=== PATIENT | male | born 1990 | race Caucasian/White ===

== ENCOUNTER 2019-01-14 11:09 | Observation (INO) | payer OTHER ==
[2019-01-14] MEDS ORDERED: Albuterol/Ipratropium 3.0-0.5 MG/3 ML Neb Soln NEB ONE (11:12)
--- NOTE | 2019-01-14 11:13 | EDM.PDOC ---
ED HPI GENERAL MEDICAL PROBLEM - General Stated Complaint: COUGHING, CHEST PAIN, SHORTNESS OF BREATH Time Seen by Provider: 01/14/19 11:13 Source of Information: Reports: Patient History Limitations: Reports: No Limitations - History of Present Illness INITIAL COMMENTS - FREE TEXT/NARRATIVE: HISTORY AND PHYSICAL: History of present illness: Patient is a 28-year-old male presents to the emergency room with complaints of chest pain. Patient indicates that his chest pain when lying in bed is across the anterior aspect of his chest; however when he moves it radiates to the left side of his chest. Pain does not radiation to his jaw, back or arms. He indicates that the pain does get worse with standing up or physical activity. He denies having any prior history of cold symptoms but does indicate that he has a minor sore throat today but feels this is related to him not drinking enough. He indicates the chest pain and the cough started yesterday at the same time. Review of systems: As per history of present illness and below otherwise all systems reviewed and negative. Past medical history: As per history of present illness and as reviewed below otherwise noncontributory. Surgical history: As per history of present illness and as reviewed below otherwise noncontributory. Social history: See social history for further information Family history: As per history of present illness and as reviewed below otherwise noncontributory. Physical exam: General: Well-developed and well-nourished 28-year-old male. Alert and oriented. Nontoxic appearing and in no acute distress. HEENT: Atraumatic, normocephalic, pupils equal and reactive bilaterally, negative for conjunctival pallor or scleral icterus, mucous membranes moist, TMs normal bilaterally, throat clear, neck supple, nontender, trachea midline. No drooling or trismus noted. No meningeal signs. No hot potato voice noted. Lungs: Breath sounds are diminished/faint bilaterally prior to breathing treatment, may be due to body habitus. Breath sounds after the breathing treatment continued to demonstrate diminished/faint to the left side, with increased breath sounds to the right, chest nontender to palpation. Heart: S1S2, regular rate and rhythm without overt murmur Abdomen: Soft, obese, nontender. Negative for masses. Negative for costovertebral tenderness. Pelvis: Stable nontender. Genitourinary/Rectal: Deferred. Skin: Pale, intact, warm, and dry. No lesions or rashes noted. Extremities: Atraumatic, moves all extremities per self without difficulty or deficits, negative for cords or calf pain. Neurovascular unremarkable. Neuro: Awake, alert, oriented. Cranial nerves II through XII unremarkable. Cerebellum unremarkable. Motor and sensory unremarkable throughout. Exam nonfocal. Notes: Oxygen saturation upon presentation is 91% on room air. DuoNeb handheld nebulizer is provided along with IV medications. Oxygen is placed at 2 L with oxygen saturation now 93%. Labs are within normal limits. Chest x-ray shows a large left pneumothorax with mild mediastinal shift to the right. Dr Veronica was consulted on this patient. She will come in and see the patient. Diagnostic findings were shared with the patient. He is anxious regarding these results and initially wanted to leave the emergency department to return home to [place]. He was made aware of the severe D of these findings and the need to have this addressed here in our facility. 1230: Dr Veronica here with patient for procedure. Please see her note for details. Diagnostics: CBC, CMP, Chest x-ray Therapeutics: Duo Neb, Solu-Medrol, Toradol Impression: Spontaneous Pneumothorax Plan: Observation admission to med/surg Definitive disposition and diagnosis as appropriate pending reevaluation and review of above. L Chest Pain Score (Numeric/FACES): 3 - Related Data Allergies Allergy/AdvReac Type Severity Reaction Status Date / Time No Known Allergies Allergy Verified 01/14/19 11:19 Home Meds: Home Meds . [No Known Home Meds] 01/14/19 [History] ED ROS GENERAL - Review of Systems Review Of Systems: ROS reveals no pertinent complaints other than HPI. ED EXAM, GENERAL - Physical Exam Exam: See Below (See dictation) Course - Vital Signs Last Recorded V/S: Last Vital Signs Temp 96.7 F 01/14/19 11:16 Pulse 102 H 01/14/19 14:03 Resp 19 01/14/19 14:03 BP 110/76 01/14/19 14:03 Pulse Ox 93 L 01/14/19 14:03 - Orders/Labs/Meds Orders: Active Orders 24 hr Category Date Time Status Admission Status [Patient Status] [ADT] Stat ADT 01/14/19 13:19 Active EKG Documentation Completion [RC] STAT Care 01/14/19 11:12 Active RT Aerosol Therapy [RC] ASDIRECTED Care 01/14/19 11:12 Active Chest wo Cont [CT] Stat Exams 01/14/19 13:29 Taken fentaNYL [Sublimaze] Med 01/14/19 13:03 Active 25 mcg IVPUSH Q5M PRN fentaNYL [Sublimaze] Med 01/14/19 12:35 Active 50 mcg IVPUSH Q5M PRN Medication Orders Fentanyl (Sublimaze) 50 mcg IVPUSH Q5M PRN PRN Reason: Pain Last Admin: 01/14/19 12:48 Dose: 50 mcg Fentanyl (Sublimaze) 25 mcg IVPUSH Q5M PRN PRN Reason: Pain Labs: Laboratory Tests 01/14/19 01/14/19 Range/Units 11:15 11:15 WBC 9.35 (4.0-11.0) K/uL RBC 5.68 (4.50-5.90) M/uL Hgb 16.1 (13.0-17.0) g/dL Hct 47.5 (38.0-50.0) % MCV 83.6 (80.0-98.0) fL MCH 28.3 (27.0-32.0) pg MCHC 33.9 (31.0-37.0) g/dL RDW Std Deviation 39.6 (28.0-62.0) fl RDW Coeff of Ailyn 13 (11.0-15.0) % Plt Count 310 (150-400) K/uL MPV 9.50 (7.40-12.00) fL Neut % (Auto) 53.4 (48.0-80.0) % Lymph % (Auto) 33.7 (16.0-40.0) % [place] % (Auto) 9.7 (0.0-15.0) % Eos % (Auto) 2.8 (0.0-7.0) % Baso % (Auto) 0.4 (0.0-1.5) % Neut # (Auto) 5.0 (1.4-5.7) K/uL Lymph # (Auto) 3.2 H (0.6-2.4) K/uL [place] # (Auto) 0.9 H (0.0-0.8) K/uL Eos # (Auto) 0.3 (0.0-0.7) K/uL Baso # (Auto) 0.0 (0.0-0.1) K/uL Nucleated RBC % 0.0 /100WBC Nucleated RBCs # 0 K/uL Sodium 139 (136-148) mmol/L Potassium 3.7 (3.5-5.1) mmol/L Chloride 106 (98-107) mmol/L Carbon Dioxide 24.2 (21.0-32.0) mmol/L BUN 15 (7.0-18.0) mg/dL Creatinine 1.0 (0.8-1.3) mg/dL Est Cr Clr Drug Dosing 119.63 mL/min Estimated GFR (MDRD) > 60.0 ml/min Glucose 101 (74-106) mg/dL Calcium 8.8 (8.5-10.1) mg/dL Total Bilirubin 0.5 (0.2-1.0) mg/dL AST 18 (15-37) IU/L ALT 33 (14-63) IU/L Alkaline Phosphatase 107 (46-116) U/L Total Protein 8.1 (6.4-8.2) g/dL Albumin 4.0 (3.4-5.0) g/dL Globulin 4.1 H (2.6-4.0) g/dL Albumin/Globulin Ratio 1.0 (0.9-1.6) Meds: Medications Generic Name Dose Route Start Last Admin Trade Name Freq PRN Reason Stop Dose Admin Fentanyl 50 mcg 01/14/19 12:35 01/14/19 12:48 Sublimaze IVPUSH 50 mcg Q5M PRN Administration Pain Fentanyl 25 mcg 01/14/19 13:03 Sublimaze IVPUSH Q5M PRN Pain Discontinued Medications Generic Name Dose Route Start Last Admin Trade Name Freq PRN Reason Stop Dose Admin Albuterol/Ipratropium 3 ml 01/14/19 11:12 01/14/19 11:31 Duoneb 3.0-0.5 Mg/3 Ml NEB 01/14/19 11:13 3 ml ONETIME ONE Administration Ketorolac Tromethamine 30 mg 01/14/19 11:45 01/14/19 11:57 Toradol IVPUSH 01/14/19 11:46 30 mg ONETIME ONE Administration Lidocaine HCl 20 ml 01/14/19 12:36 01/14/19 12:54 Xylocaine 1% INJECT 01/14/19 12:37 Not Given ONETIME ONE Lidocaine HCl Confirm 01/14/19 12:40 01/14/19 12:54 Xylocaine 1% Administered 01/14/19 12:41 50 ml Dose Administration 50 ml .ROUTE .STK-MED ONE Methylprednisolone Sodium Succinate 125 mg 01/14/19 11:21 01/14/19 11:57 Solu-Medrol IVPUSH 01/14/19 11:22 125 mg ONETIME ONE Administration Midazolam HCl 2 mg 01/14/19 12:36 01/14/19 12:49 Versed 1 Mg/Ml IVPUSH 01/14/19 12:37 2 mg ONETIME ONE Administration Departure - Departure Time of Disposition: 14:23 Disposition: Refer to Observation Clinical Impression: Spontaneous pneumothorax - Discharge Information - My Orders Last 24 Hours: My Active Orders 01/14/19 11:12 EKG Documentation Completion [RC] STAT RT Aerosol Therapy [RC] ASDIRECTED 01/14/19 13:19 Admission Status [Patient Status] [ADT] Stat 01/14/19 13:29 Chest wo Cont [CT] Stat - Assessment/Plan Last 24 Hours: My Active Orders 01/14/19 11:12 EKG Documentation Completion [RC] STAT RT Aerosol Therapy [RC] ASDIRECTED 01/14/19 13:19 Admission Status [Patient Status] [ADT] Stat 01/14/19 13:29 Chest wo Cont [CT] Stat
[2019-01-14] MEDS ORDERED: methylPREDNISolone Sodium Succinate 125 MG/2 ML SDV IVPUSH ONE (11:21)
[2019-01-14 11:43] LABS: CHLORIDE,CL 106 mmol/L (98-107); SODIUM,NA 139 mmol/L (136-148)
[2019-01-14] MEDS ORDERED: Ketorolac 30 MG/ML SDV IVPUSH ONE (11:45)
--- NOTE | 2019-01-14 12:15 | CR ---
INDICATION: Dyspnea TECHNIQUE: Chest 2 views. COMPARISON: None FINDINGS: There is a large left pneumothorax with near complete collapse of the left lung and mild mediastinal shift to the right. Right lung is clear. Normal heart size. IMPRESSION: Large left pneumothorax with mild mediastinal shift to the right. Findings were discussed with Dr. Edouard on 01/14/2019 at 12:15 p.m. Dictated by Thalia William MD @ 01/14/2019 12:14:02 PM Dictated by: Thalia William MD @ 01/14/2019 12:14:08 (Electronically Signed)
[2019-01-14] MEDS ORDERED: fentaNYL 100 MCG/2 ML SDV IVPUSH PRN ×2 (12:35→13:03)
[2019-01-14] MEDS ORDERED: Lidocaine 1% 10 ML MDV INJECT ONE (12:36)
[2019-01-14] MEDS ORDERED: Midazolam 1 MG/ML 2 ML SDV IVPUSH ONE (12:36)
[2019-01-14] MEDS ORDERED: Lidocaine 1% 50 ML MDV ONE (12:40)
--- NOTE | 2019-01-14 13:42 | CR ---
Indication: Post chest tube. Technique: Single AP portable view of the chest was obtained. Comparison: Study from earlier today. The current studies dated 1322 hours. Findings: A left-sided chest tube is identified. The left lung is nearly completely expanded. Only minimal residual pneumothorax is identified. Subcutaneous emphysema is identified on the left. The heart is borderline in size. The right lung is clear. Impression: Interval insertion of a left-sided chest tube with near complete resolution of the left-sided pneumothorax. Dictated by Jennifer Pascual MD @ Jan 14 2019 1:40PM Signed by Dr. Jennifer Pascual @ Jan 14 2019 1:41PM
--- NOTE | 2019-01-14 14:04 | PCM.HP ---
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 This lasted through the night. Since it was not better this morning he decided to present to the ER. He denies fever or chills. Her was slightly hypertensive and his )2 sats were in the low 90s on admission. A CXR showed a large left sided pneumothorax. He is a non-smoker. L Chest Pain Score (Numeric/FACES): 3 - Related Data Allergies/Adverse Reactions: Allergies Allergy/AdvReac Type Severity Reaction Status Date / Time No Known Allergies Allergy Verified 01/14/19 11:19 Home Medications: Home Meds . [No Known Home Meds] 01/14/19 [History] Past Medical History - Past Health History Medical/Surgical History: Denies Medical/Surgical History - Infectious Disease History Infectious Disease History: Reports: Chicken Pox Social & Family History - Tobacco Use Smoking Status *Q: Never Smoker Second Hand Smoke Exposure: No - Caffeine Use Caffeine Use: Reports: Coffee, Energy Drinks, Soda, Tea - Alcohol Use Days Per Week of Alcohol Use: 4 Number of Drinks Per Day: 1 Total Drinks Per Week: 4 - Recreational Drug Use Recreational Drug Use: No H&P Review of Systems - Review of Systems: Review Of Systems: ROS reveals no pertinent complaints other than HPI. Exam - Exam Exam: See Below - Vital Signs Vital Signs: Last Vital Signs Temp 35.9 C 01/14/19 11:16 Pulse 82 01/14/19 12:54 Resp 25 H 01/14/19 12:54 BP 139/93 H 01/14/19 12:54 Pulse Ox 93 L 01/14/19 12:54 Weight: 160 kg - Exam General: Alert, Oriented, Cooperative HEENT: Conjunctiva Clear, Mucosa Moist & [place], Posterior Pharynx Clear Lungs: Other (Absent breath sounds on the left side of the chest ) Cardiovascular: Regular Rate, Regular Rhythm, Other (Distant heart sounds ) GI/Abdominal Exam: Soft, Non-Tender, No Distention, No Mass Back Exam: Normal Inspection, Full Range of Motion Extremities: Normal Inspection, Normal Range of Motion - Patient Data Lab Results Last 24 hrs: Laboratory Results - last 24 hr 01/14/19 01/14/19 Range/Units 11:15 11:15 WBC 9.35 (4.0-11.0) K/uL RBC 5.68 (4.50-5.90) M/uL Hgb 16.1 (13.0-17.0) g/dL Hct 47.5 (38.0-50.0) % MCV 83.6 (80.0-98.0) fL MCH 28.3 (27.0-32.0) pg MCHC 33.9 (31.0-37.0) g/dL RDW Std Deviation 39.6 (28.0-62.0) fl RDW Coeff of Ailyn 13 (11.0-15.0) % Plt Count 310 (150-400) K/uL MPV 9.50 (7.40-12.00) fL Neut % (Auto) 53.4 (48.0-80.0) % Lymph % (Auto) 33.7 (16.0-40.0) % [place] % (Auto) 9.7 (0.0-15.0) % Eos % (Auto) 2.8 (0.0-7.0) % Baso % (Auto) 0.4 (0.0-1.5) % Neut # (Auto) 5.0 (1.4-5.7) K/uL Lymph # (Auto) 3.2 H (0.6-2.4) K/uL [place] # (Auto) 0.9 H (0.0-0.8) K/uL Eos # (Auto) 0.3 (0.0-0.7) K/uL Baso # (Auto) 0.0 (0.0-0.1) K/uL Nucleated RBC % 0.0 /100WBC Nucleated RBCs # 0 K/uL Sodium 139 (136-148) mmol/L Potassium 3.7 (3.5-5.1) mmol/L Chloride 106 (98-107) mmol/L Carbon Dioxide 24.2 (21.0-32.0) mmol/L BUN 15 (7.0-18.0) mg/dL Creatinine 1.0 (0.8-1.3) mg/dL Est Cr Clr Drug Dosing 119.63 mL/min Estimated GFR (MDRD) > 60.0 ml/min Glucose 101 (74-106) mg/dL Calcium 8.8 (8.5-10.1) mg/dL Total Bilirubin 0.5 (0.2-1.0) mg/dL AST 18 (15-37) IU/L ALT 33 (14-63) IU/L Alkaline Phosphatase 107 (46-116) U/L Total Protein 8.1 (6.4-8.2) g/dL Albumin 4.0 (3.4-5.0) g/dL Globulin 4.1 H (2.6-4.0) g/dL Albumin/Globulin Ratio 1.0 (0.9-1.6) Result Diagrams: 01/14/19 11:15 01/14/19 11:15 - Problem List (1) Spontaneous pneumothorax SNOMED Code(s): 41319654 ICD Code: J93.83 - OTHER PNEUMOTHORAX Status: Acute Problem List Initiated/Reviewed/Updated: Yes Orders Last 24hrs: Active Orders 24 hr Category Date Time Status Admission Status [Patient Status] [ADT] Stat ADT 01/14/19 13:19 Active EKG Documentation Completion [RC] STAT Care 01/14/19 11:12 Active RT Aerosol Therapy [RC] ASDIRECTED Care 01/14/19 11:12 Active Chest wo Cont [CT] Stat Exams 01/14/19 13:29 Ordered fentaNYL [Sublimaze] Med 01/14/19 13:03 Active 25 mcg IVPUSH Q5M PRN fentaNYL [Sublimaze] Med 01/14/19 12:35 Active 50 mcg IVPUSH Q5M PRN Medication Orders Fentanyl (Sublimaze) 50 mcg IVPUSH Q5M PRN PRN Reason: Pain Last Admin: 01/14/19 12:48 Dose: 50 mcg Fentanyl (Sublimaze) 25 mcg IVPUSH Q5M PRN PRN Reason: Pain Assessment/Plan Comment:: I explained to the patient that he has a spontaneous pneumothorax. He will require chest tube placement. I explained the proedure, expected perioperative course and risks including bleeding, infection or chest tube damage to surrounding structures. He verbalized understanding and wishes to proceed.
[2019-01-14] MEDS ORDERED: diphenhydrAMINE 50 MG/ML SDV IVPUSH PRN (14:29)
[2019-01-14] MEDS ORDERED: Sodium Chloride 0.9% 2.5 ML Syringe FLUSH PRN (14:29)
[2019-01-14] MEDS ORDERED: HYDROmorphone 2 MG/ML SDV IVPUSH PRN (14:29)
[2019-01-14] MEDS ORDERED: Sodium Chloride 0.9% 10 ML Syringe FLUSH PRN (14:29)
[2019-01-14] MEDS ORDERED: Sodium Chloride 0.9% 10 ML SDV IV PRN (14:29)
[2019-01-14] MEDS ORDERED: ceFAZolin 2 GM in Premix Bag 1 BAG IV ONE ×2 (14:30→14:32)
--- NOTE | 2019-01-14 14:38 | CT ---
INDICATION: Shortness of breath, chest pain, recent pneumothorax, assess left chest tube placement. TECHNIQUE: CT chest without contrast. COMPARISON: Chest radiograph performed earlier on the same date. FINDINGS: Cardiovascular structures: Normal heart size. Thoracic aorta and main pulmonary artery are normal in caliber. Mediastinum and marichuy: There is a small amount of pneumomediastinum. No mediastinal or hilar lymphadenopathy, noting limited evaluation of the marichuy due to lack of intravenous contrast. Lungs: There is a left basilar chest tube with the tip at the inferiormost medial aspect of the left pleural space. There is minimal residual pneumothorax. There is linear atelectasis at the left upper and lower lobes. Minimal dependent changes of the right lung; otherwise, right lung is clear. Pleura and pericardium: No effusions. Chest wall and axilla: Moderate left chest wall subcutaneous emphysema. Bones: Within normal limits. Upper abdomen: Within normal limits. IMPRESSION: Left basilar chest tube with tip at the inferior-most aspect of the left pleural space, with minimal residual hemothorax. Chest tube could be retracted by approximately 4 cm. Dictated by Thalia William MD @ 01/14/2019 2:36:26 PM Please note that all CT scans at this facility use dose modulation, iterative reconstruction, and/or weight-based dosing when appropriate to reduce radiation dose to as low as reasonably achievable. Dictated by: Thalia William MD @ 01/14/2019 14:36:35 (Electronically Signed)
[2019-01-14] MEDS ORDERED: HYDROmorphone 1 MG/ML Syringe IVPUSH ONE (14:42)
--- NOTE | 2019-01-14 14:55 | CR ---
Indication: Pneumothorax. Chest tube pulled back 4 cm. Technique: A single AP portable view of the chest was obtained. The current study is dated 1444 hours. Comparison is made with the study from earlier today. Findings : Left-sided chest tube is identified. Distal extends deep within the medial aspect of the costophrenic sulcus. The pneumothorax has decreased in size. Subcutaneous emphysema is identified on the left. Small left pleural effusion seen. The right lung is clear. Impression: Left-sided chest tube with a chest tube still extending deep within the costophrenic sulcus medially. Study from earlier today. Dictated by Jennifer Pascual MD @ Jan 14 2019 2:53PM Signed by Dr. Jennifer Pascual @ Jan 14 2019 2:54PM
--- NOTE | 2019-01-14 15:30 | OR ---
SURGEON: CHLOE VERONICA MD DATE OF PROCEDURE: 01/14/2019 PREOPERATIVE DIAGNOSIS: Left spontaneous pneumothorax. POSTOPERATIVE DIAGNOSIS: Left spontaneous pneumothorax. PROCEDURE PERFORMED: Left chest tube placement, left chest tube repositioning. PRIMARY SURGEON: Chloe Veronica MD. ANESTHESIA: Local. ESTIMATED BLOOD LOSS: 5 mL. FINDINGS: Large spontaneous pneumothorax on the left side. Chest tube placed inferiorly along the pulmonary fissure. Chest tube originally placed too deep and had to be repositioned to 16 cm at the skin. COMPLICATIONS: None. INDICATIONS: The patient is a 28-year-old male, who presents with a large left spontaneous pneumothorax. I discussed the need for a chest tube to resolve this. I explained the procedure, expected perioperative course, and risks including bleeding, infection, or damage to surrounding structures. The patient verbalized understanding and wishes to proceed. PROCEDURE IN DETAIL: The patient was met in the ER. He was placed in supine position on the ER cart with his arm elevated above his head at a 90-degree angle. A time-out was completed verifying the patient's name, age, date of , allergies, and procedure to be performed. The patient was given 75 mcg of fentanyl and 2 mg of Versed. The left chest was prepped and draped in usual standard fashion. A site was chosen just lateral to the left nipple just anterior to the mid- axillary line. I anesthetized the area with 20 mL of 1% lidocaine plain, carrying the local anesthetic down to the chest wall. An 11 blade was used to make a 3 cm incision horizontally along the skin. A Daisy clamp was used to dissect along the patient's subcutaneous fat tissue to the level of the chest wall. I then palpated the ribs on the chest wall. I selected a space above the highest rib. Using the Daisy clamp, I then pierced through the intercostal muscles and a large riley of air was noted. I then placed my finger through the wound and could palpate the pulmonary tissue up against my finger and the chest wall itself. A 28-Frisian chest tube was then placed against the chest wall. It appeared that it needed to be placed between 14 to 16 cm at the skin. I placed the end of the chest tube on a clamp and guided it to the level of the opening in the chest wall. Once the chest tube was inserted in the chest, I removed the clamp. The chest tube was then advanced posteriorly and superiorly as best I could. I could see good air tidaling throughout the tube. The chest tube was placed at 16 cm at the skin. The chest tube was then placed to suction. Using 2-0 silk suture, I placed one interrupted suture along the inferior aspect of the incision. I then placed another suture near the chest tube and used that to secure the chest tube to the chest wall. Vaseline gauze and sterile dressings were applied. A chest x-ray was taken that showed the chest tube had actually turned downwards and the tip of the tube was resting in the medial fissure. This was confirmed with a CT scan. I visited with the radiologist, who felt that the chest tube needed to be pulled back a minimum of 4 cm. I explained this to the patient, who agreed to repositioning the tube. I removed the dressings and re-prepped and draped around the chest tube in the chest wall. Using sterile technique, I then pulled the chest tube back 4 cm. I was able to do this without removing the suture that was tied around the chest tube itself. On inspection, the chest tube had been accidentally pushed to 20 cm at the skin, which is likely why it was pushed so deeply within the chest wall. The chest tube was pulled back to 16 cm. Sterile dressings were applied. A repeat chest x-ray was done, which showed better inflation of the lung and better positioning of the chest tube within the chest cavity. The patient tolerated these procedures well with no immediate complications. KATHIE JOHNSON /[id number] KAYKAY
[2019-01-14] MEDS: Acetaminophen/oxyCODONE 325-5 MG Tab PO PRN ×2 (17:17→22:41)
[2019-01-14] MEDS: Ondansetron 4 MG/2 ML SDV IVPUSH PRN (18:58)
[2019-01-15] MEDS: Acetaminophen/oxyCODONE 325-5 MG Tab PO PRN ×5 (04:01→22:25)
--- NOTE | 2019-01-15 06:14 | CR ---
Indication: Pneumothorax Technique: Chest 1 view Comparison: January 14, 2019 Findings/Impression: Cardiovascular and mediastinum: Heart size and vasculature are normal in caliber and appearance. Lungs and pleural space: Left basilar chest tube is unchanged. Stable tiny left apical pneumothorax. Stable bibasilar atelectasis. Remainder of the lungs are clear. No change from yesterday`s exam. Bones and soft tissues: No acute findings. Dictated by Babak Navarro MD @ Jan 15 2019 6:12AM Signed by Dr. Babak Navarro @ Jan 15 2019 6:14AM
[2019-01-15] MEDS ORDERED: HYDROmorphone 1 MG/ML Syringe IVPUSH PRN (07:30)
[2019-01-15] MEDS: Bisacodyl 5 MG Tab PO SCH ×2 (08:43→08:45)
--- NOTE | 2019-01-15 10:25 | PCM.SURGPN ---
- General Info Date of Service: 01/15/19 Date of Surgery/Procedure: 01/14/19 POD#: 1 Functional Status: Reports: Pain Controlled, Tolerating Diet, Ambulating, Urinating - Review of Systems General: Reports: No Symptoms HEENT: Reports: No Symptoms Pulmonary: Reports: No Symptoms Cardiovascular: Reports: No Symptoms Gastrointestinal: Reports: No Symptoms Genitourinary: Reports: No Symptoms Musculoskeletal: Reports: No Symptoms Skin: Reports: No Symptoms - Patient Data Vitals - Most Recent: Last Vital Signs Temp 36.2 C 01/15/19 07:20 Pulse 53 L 01/15/19 07:20 Resp 16 01/15/19 07:20 BP 117/66 01/15/19 07:20 Pulse Ox 96 01/15/19 07:20 Weight - Most Recent: 160 kg I&O - Last 24 Hours: Intake & Output 01/14/19 01/15/19 01/15/19 22:59 06:59 14:59 Intake Total 0 1800 Output Total 20 525 Balance -20 1275 Lab Results Last 24 Hrs: Laboratory Results - last 24 hr 01/14/19 01/14/19 Range/Units 11:15 11:15 WBC 9.35 (4.0-11.0) K/uL RBC 5.68 (4.50-5.90) M/uL Hgb 16.1 (13.0-17.0) g/dL Hct 47.5 (38.0-50.0) % MCV 83.6 (80.0-98.0) fL MCH 28.3 (27.0-32.0) pg MCHC 33.9 (31.0-37.0) g/dL RDW Std Deviation 39.6 (28.0-62.0) fl RDW Coeff of Ailyn 13 (11.0-15.0) % Plt Count 310 (150-400) K/uL MPV 9.50 (7.40-12.00) fL Neut % (Auto) 53.4 (48.0-80.0) % Lymph % (Auto) 33.7 (16.0-40.0) % [place] % (Auto) 9.7 (0.0-15.0) % Eos % (Auto) 2.8 (0.0-7.0) % Baso % (Auto) 0.4 (0.0-1.5) % Neut # (Auto) 5.0 (1.4-5.7) K/uL Lymph # (Auto) 3.2 H (0.6-2.4) K/uL [place] # (Auto) 0.9 H (0.0-0.8) K/uL Eos # (Auto) 0.3 (0.0-0.7) K/uL Baso # (Auto) 0.0 (0.0-0.1) K/uL Nucleated RBC % 0.0 /100WBC Nucleated RBCs # 0 K/uL Sodium 139 (136-148) mmol/L Potassium 3.7 (3.5-5.1) mmol/L Chloride 106 (98-107) mmol/L Carbon Dioxide 24.2 (21.0-32.0) mmol/L BUN 15 (7.0-18.0) mg/dL Creatinine 1.0 (0.8-1.3) mg/dL Est Cr Clr Drug Dosing 119.63 mL/min Estimated GFR (MDRD) > 60.0 ml/min Glucose 101 (74-106) mg/dL Calcium 8.8 (8.5-10.1) mg/dL Total Bilirubin 0.5 (0.2-1.0) mg/dL AST 18 (15-37) IU/L ALT 33 (14-63) IU/L Alkaline Phosphatase 107 (46-116) U/L Total Protein 8.1 (6.4-8.2) g/dL Albumin 4.0 (3.4-5.0) g/dL Globulin 4.1 H (2.6-4.0) g/dL Albumin/Globulin Ratio 1.0 (0.9-1.6) Med Orders - Current: Current Medications Bisacodyl (Dulcolax) 5 mg PO DAILY ARELY Last Admin: 01/15/19 08:45 Dose: Not Given Diphenhydramine HCl (Benadryl) 50 mg IVPUSH Q4H PRN PRN Reason: Itching Hydromorphone HCl (Dilaudid) 0.5 mg IVPUSH Q1H PRN PRN Reason: Pain (severe 7-10) Ondansetron HCl (Zofran) 4 mg IVPUSH Q6H PRN PRN Reason: Nausea/Vomiting Last Admin: 01/14/19 18:58 Dose: 4 mg Oxycodone/Acetaminophen (Percocet 325-5 Mg) 2 tab PO Q4H PRN PRN Reason: Pain (moderate 4-6) Last Admin: 01/15/19 08:42 Dose: 2 tab Sodium Chloride (Saline Flush) 10 ml FLUSH ASDIRECTED PRN PRN Reason: Keep Vein Open Sodium Chloride (Saline Flush) 2.5 ml FLUSH ASDIRECTED PRN PRN Reason: Keep Vein Open Sodium Chloride (Normal Saline) 10 ml IV ASDIRECTED PRN PRN Reason: IV Use Discontinued Medications Albuterol/Ipratropium (Duoneb 3.0-0.5 Mg/3 Ml) 3 ml NEB ONETIME ONE Stop: 01/14/19 11:13 Last Admin: 01/14/19 11:31 Dose: 3 ml Fentanyl (Sublimaze) 50 mcg IVPUSH Q5M PRN PRN Reason: Pain Last Admin: 01/14/19 12:48 Dose: 50 mcg Fentanyl (Sublimaze) 25 mcg IVPUSH Q5M PRN PRN Reason: Pain Hydromorphone HCl (Dilaudid) 0.5 mg IVPUSH Q1H PRN PRN Reason: Pain (severe 7-10) Hydromorphone HCl (Dilaudid) 0.5 mg IVPUSH ONETIME ONE Stop: 01/14/19 14:43 Last Admin: 01/14/19 14:47 Dose: 0.5 mg Cefazolin Sodium/Dextrose 2 gm (/ Premix) 50 mls @ 100 mls/hr IV ONETIME ONE Stop: 01/14/19 15:01 Last Admin: 01/14/19 14:36 Dose: Not Given Cefazolin Sodium/Dextrose 2 gm (/ Premix) 50 mls @ 100 mls/hr IV ONETIME ONE Stop: 01/14/19 14:59 Last Admin: 01/14/19 14:47 Dose: 100 mls/hr Ketorolac Tromethamine (Toradol) 30 mg IVPUSH ONETIME ONE Stop: 01/14/19 11:46 Last Admin: 01/14/19 11:57 Dose: 30 mg Lidocaine HCl (Xylocaine 1%) 20 ml INJECT ONETIME ONE Stop: 01/14/19 12:37 Last Admin: 01/14/19 12:54 Dose: Not Given Lidocaine HCl (Xylocaine 1%) Confirm Administered Dose 50 ml .ROUTE .STK-MED ONE Stop: 01/14/19 12:41 Last Admin: 01/14/19 12:54 Dose: 50 ml Methylprednisolone Sodium Succinate (Solu-Medrol) 125 mg IVPUSH ONETIME ONE Stop: 01/14/19 11:22 Last Admin: 01/14/19 11:57 Dose: 125 mg Midazolam HCl (Versed 1 Mg/Ml) 2 mg IVPUSH ONETIME ONE Stop: 01/14/19 12:37 Last Admin: 01/14/19 12:49 Dose: 2 mg - Exam Wound/Incisions: Healing Well, Dressing Dry and Intact, No Drainage General: Alert, Oriented HEENT: Pupils Equal, Pupils Reactive, EOMI, Mucous Membr. Moist/Lares Neck: Supple Lungs: Clear to Auscultation, Normal Respiratory Effort Cardiovascular: Regular Rate, Regular Rhythm GI/Abdominal Exam: Soft - Problem List & Annotations (1) Spontaneous pneumothorax SNOMED Code(s): 22014776 Code(s): J93.83 - OTHER PNEUMOTHORAX Status: Acute Current Visit: No - Problem List Review Problem List Initiated/Reviewed/Updated: Yes - My Orders Last 24 Hours: Active Orders 24 hr Category Date Time Status Admission Status [Patient Status] [ADT] Stat ADT 01/14/19 13:19 Active Patient Status [ADT] Routine ADT 01/14/19 14:29 Active Antiembolic Devices [RC] .Routine Care 01/14/19 14:32 Active Chest Tube Management [RC] ASDIRECTED Care 01/14/19 14:34 Active Intake and Output [RC] QSHIFT Care 01/14/19 14:30 Active Notify Provider Vital Signs [RC] PRN Care 01/14/19 14:30 Active Oxygen Therapy [RC] PRN Care 01/14/19 14:29 Active Pulse Oximetry [RC] CONTINUOUS Care 01/14/19 14:30 Active RT Aerosol Therapy [RC] ASDIRECTED Care 01/14/19 11:12 Active RT Incentive Spirometry [RC] Q1HWA Care 01/14/19 14:29 Active Up With Assistance [RC] ASDIRECTED Care 01/14/19 14:29 Active VTE/DVT Education [RC] PER UNIT ROUTINE Care 01/14/19 14:32 Active Vital Signs [RC] Q4H Care 01/14/19 14:29 Active Regular Diet [DIET] Diet 01/14/19 Lunch Active Acetaminophen/oxyCODONE [Percocet 325-5 MG] Med 01/14/19 14:29 Active 2 tab PO Q4H PRN Bisacodyl [Dulcolax] Med 01/15/19 09:00 Active 5 mg PO DAILY HYDROmorphone [Dilaudid] Med 01/15/19 07:30 Active 0.5 mg IVPUSH Q1H PRN Ondansetron [Zofran] Med 01/14/19 14:29 Active 4 mg IVPUSH Q6H PRN Sodium Chloride 0.9% [Normal Saline] Med 01/14/19 14:29 Active 10 ml IV ASDIRECTED PRN Sodium Chloride 0.9% [Saline Flush] Med 01/14/19 14:29 Active 10 ml FLUSH ASDIRECTED PRN Sodium Chloride 0.9% [Saline Flush] Med 01/14/19 14:29 Active 2.5 ml FLUSH ASDIRECTED PRN diphenhydrAMINE [Benadryl] Med 01/14/19 14:29 Active 50 mg IVPUSH Q4H PRN DVT/VTE Prophylaxis Reflex [OM.PC] Routine Oth 01/14/19 14:29 Ordered Peripheral IV Insertion Adult [OM.PC] Urgent Oth 01/14/19 14:29 Ordered Sequential Compression Device [OM.PC] Per Unit Routine Oth 01/14/19 14:33 Ordered Resuscitation Status Routine Resus Stat 01/14/19 14:29 Ordered Medication Orders Bisacodyl (Dulcolax) 5 mg PO DAILY [facility] Last Admin: 01/15/19 08:45 Dose: Not Given Diphenhydramine HCl (Benadryl) 50 mg IVPUSH Q4H PRN PRN Reason: Itching Hydromorphone HCl (Dilaudid) 0.5 mg IVPUSH Q1H PRN PRN Reason: Pain (severe 7-10) Ondansetron HCl (Zofran) 4 mg IVPUSH Q6H PRN PRN Reason: Nausea/Vomiting Last Admin: 01/14/19 18:58 Dose: 4 mg Oxycodone/Acetaminophen (Percocet 325-5 Mg) 2 tab PO Q4H PRN PRN Reason: Pain (moderate 4-6) Last Admin: 01/15/19 08:42 Dose: 2 tab Admin: 01/15/19 04:01 Dose: 2 tab Admin: 01/14/19 22:41 Dose: 2 tab Admin: 01/14/19 17:17 Dose: 2 tab Sodium Chloride (Saline Flush) 10 ml FLUSH ASDIRECTED PRN PRN Reason: Keep Vein Open Sodium Chloride (Saline Flush) 2.5 ml FLUSH ASDIRECTED PRN PRN Reason: Keep Vein Open Sodium Chloride (Normal Saline) 10 ml IV ASDIRECTED PRN PRN Reason: IV Use - Plan Plan (Free Text/Narrative):: Patients CXR shows a small apical pneumothorax. Will place on non-rebreather mask with 100% FiO2 to see if this will resolve. His heart rate is low when he is resting. Will stop continuous oximetry. Can do routine spot checks and checks with normal vitals. Repeat CXR in am. If pneumothorax is gone will remove chest tube. Ok to place on water seal and off oxygen for short periods of time (<10min) to allow ambulation and transfers.
[2019-01-16] MEDS: Acetaminophen/oxyCODONE 325-5 MG Tab PO PRN ×4 (02:25→16:50)
--- NOTE | 2019-01-16 05:57 | CR ---
Indication: Pneumothorax Technique: Chest 1 view Comparison: January 15, 2019 Findings/Impression: No change in position of left-sided chest tube. No pneumothorax identified. Small amount of air in the left lateral chest wall, incompletely imaged on this exam. Lung volumes are low without focal infiltrate. No effusion. Stable cardiac size. Dictated by Sosa Glass MD @ Jan 16 2019 5:57AM Signed by Dr. Sosa Glass @ Jan 16 2019 5:57AM
[2019-01-16] MEDS: Bisacodyl 5 MG Tab PO SCH (08:46)
--- NOTE | 2019-01-16 10:05 | CR ---
EXAMINATION: Portable chest radiograph. HISTORY: Chest tube. FINDINGS: The trachea is midline. The cardiomediastinal silhouette is within normal limits. Left-sided chest tube is noted with adjacent atelectasis. No pleural effusion or pneumothorax noted. Osseous structures appear grossly unremarkable. IMPRESSION: 1. Stable left chest tube noted.
[2019-01-16] MEDS: Ondansetron 4 MG/2 ML SDV IVPUSH PRN (10:43)
--- NOTE | 2019-01-16 16:19 | CR ---
EXAMINATION: Portable chest radiograph. HISTORY: Chest tube removal. FINDINGS: The trachea is midline. The cardiomediastinal silhouette is within normal limits. No pulmonary infiltrates, effusions or pneumothorax. Persistent left basilar atelectasis. Osseous structures appear unremarkable. IMPRESSION: 1. Interval chest tube removal with persistent left basilar atelectasis.
--- NOTE | 2019-01-16 17:36 | PCM.DCSUM1 ---
Discharge Summary - Hospital Course Free Text/Narrative:: Patient is a 28 year old male who presented with a left sided spontaneous pneumothorax. He had a left chest tube placed. His chest tube was repositioned after placement due to it being placed too deep. It layed along the inferior fissure with the tip in the medial sulcus. The pneumothorax resolved however. There was no evidence of an air leak. His chest tube was put on water seal after 36 hours. The chest tube had a total of 90ml of serosanguinous drainage. Chest xray was stable after water seal so his chest tube was pulled. A follow up chest xray showed some left basilar atelectasis but no recurrent pneumothorax. His vitals were stable. He was cleared for discharge. - Discharge Data Discharge Date: 01/16/19 Discharge Disposition: Home, Self-Care 01 Condition: Serious - Discharge Diagnosis/Problem(s) (1) Spontaneous pneumothorax SNOMED Code(s): 82474786 ICD Code: J93.83 - OTHER PNEUMOTHORAX Status: Acute Current Visit: No - Patient Instructions Diet: Regular Diet as Tolerated Activity: No Lifting Over 20 Pounds, Rest and Relax Today Driving: Do Not Drive Showering/Bathing: No Showering (for 2 days ), No Tub Bathing/Swimming (for 2 weeks ) Wound/Incision Care: Keep Operative Site/Wound Site Clean and Dry Wound/Incision, Other: Ok to shower evening. Keep dressing on wound until it is scabbed Notify Provider of: Fever, Increased Pain, Swelling and Redness, Drainage, Nausea and/or Vomiting - Discharge Plan Home Medications: Home Meds . [No Known Home Meds] 01/14/19 [History] Patient Handouts: Pneumothorax Referrals: Chloe Veronica MD [Physician] - 01/22/19 8:00 am - Discharge Summary/Plan Comment DC Time >30 min.: No - General Info Functional Status: Reports: Pain Controlled, Tolerating Diet, Ambulating, Urinating - Review of Systems General: Reports: No Symptoms HEENT: Reports: No Symptoms Pulmonary: Reports: No Symptoms Cardiovascular: Reports: No Symptoms Gastrointestinal: Reports: No Symptoms Musculoskeletal: Reports: No Symptoms Skin: Reports: No Symptoms Neurological: Reports: No Symptoms - Patient Data Vitals - Most Recent: Last Vital Signs Temp 35.9 C 01/16/19 16:00 Pulse 72 01/16/19 16:00 Resp 18 01/16/19 16:00 BP 121/63 01/16/19 16:00 Pulse Ox 94 L 01/16/19 16:00 Weight - Most Recent: 160 kg I&O - Last 24 hours: Intake & Output 01/16/19 01/16/19 01/16/19 06:59 14:59 22:59 Intake Total 1200 700 Output Total 995 450 Balance 205 250 Med Orders - Current: Current Medications Bisacodyl (Dulcolax) 5 mg PO DAILY ARELY Last Admin: 01/16/19 08:46 Dose: 5 mg Diphenhydramine HCl (Benadryl) 50 mg IVPUSH Q4H PRN PRN Reason: Itching Hydromorphone HCl (Dilaudid) 0.5 mg IVPUSH Q1H PRN PRN Reason: Pain (severe 7-10) Ondansetron HCl (Zofran) 4 mg IVPUSH Q6H PRN PRN Reason: Nausea/Vomiting Last Admin: 01/16/19 10:43 Dose: 4 mg Oxycodone/Acetaminophen (Percocet 325-5 Mg) 2 tab PO Q4H PRN PRN Reason: Pain (moderate 4-6) Last Admin: 01/16/19 16:50 Dose: 2 tab Sodium Chloride (Saline Flush) 10 ml FLUSH ASDIRECTED PRN PRN Reason: Keep Vein Open Sodium Chloride (Saline Flush) 2.5 ml FLUSH ASDIRECTED PRN PRN Reason: Keep Vein Open Sodium Chloride (Normal Saline) 10 ml IV ASDIRECTED PRN PRN Reason: IV Use Discontinued Medications Albuterol/Ipratropium (Duoneb 3.0-0.5 Mg/3 Ml) 3 ml NEB ONETIME ONE Stop: 01/14/19 11:13 Last Admin: 01/14/19 11:31 Dose: 3 ml Fentanyl (Sublimaze) 50 mcg IVPUSH Q5M PRN PRN Reason: Pain Last Admin: 01/14/19 12:48 Dose: 50 mcg Fentanyl (Sublimaze) 25 mcg IVPUSH Q5M PRN PRN Reason: Pain Hydromorphone HCl (Dilaudid) 0.5 mg IVPUSH Q1H PRN PRN Reason: Pain (severe 7-10) Hydromorphone HCl (Dilaudid) 0.5 mg IVPUSH ONETIME ONE Stop: 01/14/19 14:43 Last Admin: 01/14/19 14:47 Dose: 0.5 mg Cefazolin Sodium/Dextrose 2 gm (/ Premix) 50 mls @ 100 mls/hr IV ONETIME ONE Stop: 01/14/19 15:01 Last Admin: 01/14/19 14:36 Dose: Not Given Cefazolin Sodium/Dextrose 2 gm (/ Premix) 50 mls @ 100 mls/hr IV ONETIME ONE Stop: 01/14/19 14:59 Last Admin: 01/14/19 14:47 Dose: 100 mls/hr Ketorolac Tromethamine (Toradol) 30 mg IVPUSH ONETIME ONE Stop: 01/14/19 11:46 Last Admin: 01/14/19 11:57 Dose: 30 mg Lidocaine HCl (Xylocaine 1%) 20 ml INJECT ONETIME ONE Stop: 01/14/19 12:37 Last Admin: 01/14/19 12:54 Dose: Not Given Lidocaine HCl (Xylocaine 1%) Confirm Administered Dose 50 ml .ROUTE .STK-MED ONE Stop: 01/14/19 12:41 Last Admin: 01/14/19 12:54 Dose: 50 ml Methylprednisolone Sodium Succinate (Solu-Medrol) 125 mg IVPUSH ONETIME ONE Stop: 01/14/19 11:22 Last Admin: 01/14/19 11:57 Dose: 125 mg Midazolam HCl (Versed 1 Mg/Ml) 2 mg IVPUSH ONETIME ONE Stop: 01/14/19 12:37 Last Admin: 01/14/19 12:49 Dose: 2 mg - Exam Quality Assessment: Reports: Supplemental Oxygen General: Reports: Alert, Oriented HEENT: Reports: Pupils Equal, Pupils Reactive Neck: Reports: Supple Lungs: Reports: Clear to Auscultation, Normal Respiratory Effort Cardiovascular: Reports: Regular Rate, Regular Rhythm GI/Abdominal Exam: Soft, Non-Tender, No Distention, No Mass Back Exam: Reports: Normal Inspection Extremities: Normal Inspection Skin: Reports: Warm, Dry, Intact Wound/Incisions: Reports: Dressing Dry and Intact
== END 2019-01-16 18:50 | disposition home or self-care (01) ==
LOC: MW.ED 11:09 → MW.MS 15:43
PROVIDERS: ADMIT Surgery; ATTEND Surgery
DX: J93.83 Other pneumothorax (principal)
CPT/HCPCS: 32551; 36415; 71045; 71046; 71250; 80053; 85025; 93005; 94640; 96365; 96375; 96376; 99285; A4217; A9270; G0378; J0690; J1170; J1885; J2001; J2250; J2405; J2930; J3010; 99284; J7620-GY